=== PATIENT | female | born 1955 | race Caucasian/White ===

== ENCOUNTER → 2024-06-28 12:12 | Outpatient (REF) | payer MEDICARE, OTHER, SELFPAY | LOC: HWRAD 12:12 | PROVIDERS: ATTENDING PHYSICIAN Physician Assistant; FAMILY PHYSICIAN Registered Nurse; REFERRING PHYSICIAN Physical Medicine & Rehabilitation | DX: Z01.419 Encounter for gynecological examination (general) (routine) without abnormal findings (principal); N95.2 Postmenopausal atrophic vaginitis; M81.0 Age-related osteoporosis without current pathological fracture; M47.812 Spondylosis without myelopathy or radiculopathy, cervical region; M79.18 Myalgia, other site; M54.2 Cervicalgia | CPT/HCPCS: 72040; 77080 ==

== ENCOUNTER → 2025-01-07 09:27 | Outpatient (REF) | payer MEDICARE, OTHER, SELFPAY | LOC: RCS 09:27 | PROVIDERS: ATTENDING PHYSICIAN Registered Nurse | DX: R00.2 Palpitations (principal) | CPT/HCPCS: 93225; 93226 ==